=== PATIENT | female | born 1965 | race Caucasian/White ===

== ENCOUNTER → 2016-09-01 | Day surgery (SDC) | payer OTHER ==
--- NOTE | 2016-09-02 10:24 | PATH ---
Surgical Pathology Report Patient Name: JOSSUE CARSON [facility]. Rec. #: [id number] /Age/Gender: 1965 (Age: 50) / F Account: [id number] Location: [facility] Taken: 09/01/2016 Received: 09/01/2016 Reported: 09/02/2016 Physicians: Nadir Schwartz MD Specimen(s) Received A: LEFT BREAST CORE BIOPSY 1 O'CLOCK B: RIGHT BREAST CORE BIOPSY 7 O'CLOCK Clinical History Suspicious Final Diagnosis A. LEFT BREAST, 1:00 6 CM FROM NIPPLE, NEEDLE CORE BIOPSY: SCLEROSED FIBROADENOMA. REMAINING BREAST TISSUE WITH SCLEROSING ADENOSIS AND FIBROCYSTIC CHANGES INCLUDING USUAL DUCTAL HYPERPLASIA (UDH), STROMAL FIBROSIS, AND DUCTAL DILATATION. MICROCALCIFICATIONS ARE IDENTIFIED WITHIN BENIGN DUCTAL STRUCTURES. B. RIGHT BREAST, 7:00 RETROAREOLAR, NEEDLE CORE BIOPSY: FIBROADENOMA. Electronically Signed Pramod Garcia M.D. Gross Description A. Received in formalin, labeled "left breast 1:00, 6 cmfn," are 5 keen-yellow, cylindrical portions of fibroadipose tissue ranging from 0.5-1.6 cm. in length and averaging 0.2 cm. in diameter. The specimen is submitted in toto in one cassette. B. Received in formalin, labeled "right breast 7:00 retro," are 6 keen-yellow, cylindrical portions of fibroadipose tissue ranging from 0.6-1.8 cm. in length and averaging 0.2 cm. in diameter. The specimen is submitted in toto in one cassette. Time to formalin fixation: 2 minutes Total formalin fixation time: Approximately 8 hours. /09/01/2016 saudi09/01/2016
== END | disposition home or self-care (01) ==
LOC: FRADUS-SUR 07:15
PROVIDERS: ATTEND Internal Medicine Hematology & Oncology
PROC: 0HBV3ZX Excision of Bilateral Breast, Percutaneous Approach, Diagnostic (ICD-10-PCS; principal; 2016-09-01)
DX: D24.2 Benign neoplasm of left breast (principal); D24.1 Benign neoplasm of right breast
CPT/HCPCS: 19083; 19120; 87899; 88305-TC; A4648; G0204-TC; G0206-TC